=== PATIENT | female | born 1995 | race Caucasian/White ===

== ENCOUNTER 2017-05-20 18:09 | Emergency (ER) | payer OTHER ==
[~2017-05-20] VITALS: Ht 167.6 cm; Wt 90.0 kg
[~2017-05-20 18:09] MED LIST: AMOX500T PO; CEPH500C3 PO; IBUP800T23 PO
[2017-05-20 18:11] VITALS: BP 124/78; PULSE 80; RESP 16; TEMP 98.1; O2SAT 98
--- NOTE | 2017-05-20 18:52 | PD ---
HPI Chief Complaint: Head Injury Time Seen by Provider: 18:39 Travel History International Travel<30 days: No Contact w/Intl Traveler<30days: No Traveled to known affect area: No History of Present Illness HPI 21-year-old female complains of headache. Patient states that she slipped and fell down several steps. Patient states that she hit the back of her head against the steps. Patient denies loss of consciousness. Patient states that he had headache in the back of the head. Patient denies any visual change. Patient denies any neck pain. Patient denies any chest pain or shortness of breath. Patient denies abdominal pain. Patient denies any nausea vomiting. Patient denies any focal weakness or numbness of extremity. Patient states that she has intermittent dizziness. Patient states that she had a short transient period of blurring vision earlier. Patient denies any blurry vision now. PFSH Past Medical History Asthma: Yes (childhood) ?: Unknown LMP: 05/02/17 Past Surgical History Surgical History: No Previous Surgery Social History Alcohol Use: Yes (occasional) Tobacco Use: Yes (1/2 PPD) Substance Use: Yes (marijuana daily) Allergies-Medications (Allergen,Severity, Reaction): Coded Allergies: [place] (Verified Allergy, Severe, anaphalactic, 05/20/17) Reported Meds & Prescriptions Reported Meds & Active Scripts Active No Active Prescriptions or Reported Medications Review of Systems General / Constitutional: No: Fever Eyes: No: Visual changes HENT: Positive: Headaches Cardiovascular: No: Chest Pain or Discomfort Respiratory: No: Shortness of Breath Gastrointestinal: No: Abdominal Pain Genitourinary: No: Dysuria Musculoskeletal: No: Pain Skin: No Rash Neurologic: No: Weakness Psychiatric: No: Depression Endocrine: No: Polydipsia Hematologic/Lymphatic: No: Easy Bruising Physical Exam Narrative GENERAL: Well-nourished, well-developed patient. SKIN: Focused skin assessment warm/dry. HEAD: Normocephalic. Mild tenderness on palpation of the occipital area of the scalp. No soft tissue swelling. No laceration or abrasion noted. EYES: No scleral icterus. No injection or drainage. NECK: Supple, trachea midline. No JVD or lymphadenopathy. CARDIOVASCULAR: Regular rate and rhythm without murmurs, gallops, or rubs. RESPIRATORY: Breath sounds equal bilaterally. No accessory muscle use. GASTROINTESTINAL: Abdomen soft, non-tender, nondistended. MUSCULOSKELETAL: No cyanosis, or edema. BACK: Nontender without obvious deformity. No CVA tenderness. Neurologic exam: Patient's awake and alert oriented 3. No obvious focal neurologic deficit. Data Data Last Documented VS Vital Signs Date Time Temp Pulse Resp B/P Pulse Ox O2 Delivery O2 Flow Rate FiO2 05/20/17 18:11 98.1 80 16 124/[address] Brain W/O Iv Contrast(Rout) (05/20/17 18:43) Ed Urine Pregnancytest Poc (05/20/17 18:43) [facility] Medical Decision Making Medical Screen Exam Complete: Yes Emergency Medical Condition: Yes Interpretation(s) 1951 PM. Urine test negative. [address] scan of the brain negative acute pathology. Differential Diagnosis Differential diagnosis including contusion, concussion, skull fracture, intracranial hemorrhage. Narrative Course 21-year-old female with head injury. Diagnosis Primary Impression: Closed head injury Qualified Code: S09.90XA - Closed head injury, initial encounter Patient Instructions: General Instructions Additional Instructions: Tylenol Advil for headache. Follow-up with personal physician as needed. Head trauma instructions given. Med/Other Pt SpecificInfo: No Change to Meds Scripts No Active Prescriptions or Reported Meds Disposition: 01 DISCHARGE HOME Condition: Stable Pineda Fajardo MD May 20, 2017 18:52
--- NOTE | 2017-05-20 20:32 | RADRPT ---
EXAM DATE/TIME: 05/20/2017 20:22 [facility] COMPARISON: No previous studies available for comparison. INDICATIONS : Trauma, fell and hit head yesterday. Complains of dizziness today. RADIATION DOSE: 34.35 CTDIvol (mGy) MEDICAL HISTORY : None SURGICAL HISTORY : None. ENCOUNTER: Initial ACUITY: 1 day PAIN SCALE: 2/10 LOCATION: cranial TECHNIQUE: Multiple contiguous axial images were obtained of the head. Using automated exposure control and adj ustment of the mA and/or kV according to patient size, radiation dose was kept as low as reasonably a chievable to obtain optimal diagnostic quality images. DICOM format image data is available electro nically for review and comparison. FINDINGS: CEREBRUM: The ventricles are normal for age. No evidence of midline shift, mass lesion, hemorrhage or acute in farction. No extra-axial fluid collections are seen. POSTERIOR FOSSA: The cerebellum and brainstem are intact. The 4th ventricle is midline. The cerebellopontine angle i s unremarkable. EXTRACRANIAL: The visualized portion of the orbits is intact. SKULL: The calvaria is intact. No evidence of skull fracture. CONCLUSION: Negative noncontrast CT brain. Caleb Solorzano MD on May 20, 2017 at 20:30 Board Certified Radiologist. This report was verified electronically.
== END 2017-05-20 20:54 | disposition home or self-care (01) ==
LOC: NEPD 18:09
DX: S09.90XA Unspecified injury of head, initial encounter (principal); J45.909 Unspecified asthma, uncomplicated; R42 Dizziness and giddiness; R51 Headache; F17.200 Nicotine dependence, unspecified, uncomplicated; W10.9XXA Fall (on) (from) unspecified stairs and steps, initial encounter
CPT/HCPCS: 70450; 84703; 99284

== ENCOUNTER 2017-07-10 17:03 | Emergency (ER) | payer OTHER ==
[~2017-07-10] VITALS: Ht 167.6 cm; Wt 90.0 kg
[2017-07-10 17:05] VITALS: BP 128/80; PULSE 92; RESP 20; TEMP 97.8; O2SAT 99
--- NOTE | 2017-07-10 18:31 | PD ---
HPI . abdominal pain Chief Complaint: Related Problem Time Seen by Provider: 18:25 Travel History International Travel<30 days: No Contact w/Intl Traveler<30days: No Traveled to known affect area: No History of Present Illness HPI 22 yr old female here and 10 weeks . Patient says she developed abdominal pain yesterday. She also has a slight vomiting this morning. She says she was in September and had a miscarriage in her symptoms were similar. She is here wanting to know having another miscarriage. She denies any vaginal bleeding. She currently declines a pelvic exam. [facility] Past Medical History Asthma: Yes (childhood) ?: Social History Alcohol Use: Yes (occasional) Tobacco Use: Yes (1/2 PPD) Substance Use: Yes (marijuana daily) Allergies-Medications (Allergen,Severity, Reaction): Coded Allergies: almond (Unverified Allergy, Severe, anaphalactic, 07/10/17) Reported Meds & Prescriptions Reported Meds & Active Scripts Active No Active Prescriptions or Reported Medications Review of Systems General / Constitutional: No: Fever Eyes: No: Visual changes HENT: No: Headaches Cardiovascular: No: Chest Pain or Discomfort Respiratory: No: Shortness of Breath Gastrointestinal: Positive: Abdominal Pain (left lower quadrant) Genitourinary: No: Dysuria Musculoskeletal: No: Pain Skin: No Rash Neurologic: No: Weakness Psychiatric: No: Depression Endocrine: No: Polydipsia Hematologic/Lymphatic: No: Easy Bruising Physical Exam Narrative GENERAL: AAO x 3, no acute distress, Well-nourished, well-developed patient. SKIN: Warm and dry. No visible rashes or bruising. HEAD: Normocephalic and atraumatic. EYES: No scleral icterus. No injection or drainage. ENT: No nasal drainage noted. Mucous membranes pink. Airway patent. NECK: Supple, trachea midline. No JVD. CARDIOVASCULAR: Regular rate and rhythm without murmurs, gallops, or rubs. RESPIRATORY: Breath sounds equal bilaterally. No accessory muscle use. No rhonchi or rales. GASTROINTESTINAL: Abdomen soft, non-tender, nondistended. no rebound or guarding. EXTREMITIES: No cyanosis or edema. BACK: No obvious deformity. No CVA tenderness. NEURO: CN II-12 intact, verification specialist strength normal b/l, UE and LE 5/5, no focal deficits PSYCH: AAO x 3, normal affect. Data Data Last Documented VS Vital Signs Date Time Temp Pulse Resp B/P (MAP) Pulse Ox O2 Delivery O2 Flow Rate FiO2 07/10/17 17:05 97.8 92 20 128/80 (96) 99 Room Air Orders Orders Us Pelvis (Ques Preg/Ectopic) (07/10/17 ) Urinalysis - C+S If Indicated (07/10/17 18:31) Ed Urine Pregnancytest Poc (07/10/17 18:31) Complete Blood Count With Diff (07/10/17 18:58) Basic Metabolic Panel (Bmp) (07/10/17 18:58) Beta Hcg (Quant/Titer) (07/10/17 18:40) Blood Glucose (07/10/17 20:06) Labs Laboratory Tests Test 07/10/17 18:40 07/10/17 20:02 Urine Color LIGHT-YELLOW Urine Turbidity CLEAR Urine pH 7.0 Urine Specific [place] 1.010 Urine Protein NEG mg/dL Urine Glucose (UA) NEG mg/dL Urine Ketones NEG mg/dL Urine Occult Blood NEG Urine Nitrite NEG Urine Bilirubin NEG Urine Urobilinogen LESS THAN 2.0 MG/DL Urine Leukocyte Esterase SMALL Urine RBC 1 /hpf Urine WBC 1 /hpf Urine Squamous Epithelial Cells <1 /hpf Urine Amorphous Sediment RARE Urine Bacteria RARE /hpf Urine Mucus FEW /lpf Microscopic Urinalysis Comment CULT NOT INDICATED Blood Urea Nitrogen 6 MG/DL Creatinine 0.42 MG/DL Random Glucose 63 MG/DL Calcium Level 8.7 MG/DL Sodium Level 137 MEQ/L Potassium Level 3.6 MEQ/L Chloride Level 107 MEQ/L Carbon Dioxide Level 23.4 MEQ/L Anion Gap 7 MEQ/L Estimat Glomerular Filtration Rate 190 ML/MIN Human Chorionic Gonadotropin, Quant 32580 MIU/ML White Blood Count 12.3 TH/MM3 Red Blood Count 4.37 MIL/MM3 Hemoglobin 13.0 GM/DL Hematocrit 39.1 % Mean Corpuscular Volume 89.4 FL Mean Corpuscular Hemoglobin 29.6 PG Mean Corpuscular Hemoglobin Concent 33.1 % Red Cell Distribution Width 13.4 % Platelet Count 303 TH/MM3 Mean Platelet Volume 7.5 FL Neutrophils (%) (Auto) 67.5 % Lymphocytes (%) (Auto) 25.2 % Monocytes (%) (Auto) 5.8 % Eosinophils (%) (Auto) 1.0 % Basophils (%) (Auto) 0.5 % Neutrophils # (Auto) 8.3 TH/MM3 Lymphocytes # (Auto) 3.1 TH/MM3 Monocytes # (Auto) 0.7 TH/MM3 Eosinophils # (Auto) 0.1 TH/MM3 Basophils # (Auto) 0.1 TH/MM3 CBC Comment DIFF FINAL Differential Comment MDM Medical Decision Making Medical Screen Exam Complete: Yes Emergency Medical Condition: Yes Medical Record Reviewed: Yes Differential Diagnosis Threatened , inevitable , gastroenteritis Narrative Course 22-year-old female here with sudden onset of abdominal pain and some vomiting this morning. Labs have been ordered as well as an ultrasound. She also tells me that she would like to be checked for a urinary tract infection. Laboratory Tests Test 07/10/17 18:40 07/10/17 20:02 Urine Color LIGHT-YELLOW Urine Turbidity CLEAR Urine pH 7.0 Urine Specific [place] 1.010 Urine Protein NEG mg/dL Urine Glucose (UA) NEG mg/dL Urine Ketones NEG mg/dL Urine Occult Blood NEG Urine Nitrite NEG Urine Bilirubin NEG Urine Urobilinogen LESS THAN 2.0 MG/DL Urine Leukocyte Esterase SMALL Urine RBC 1 /hpf Urine WBC 1 /hpf Urine Squamous Epithelial Cells <1 /hpf Urine Amorphous Sediment RARE Urine Bacteria RARE /hpf Urine Mucus FEW /lpf Microscopic Urinalysis Comment CULT NOT INDICATED Blood Urea Nitrogen 6 MG/DL Creatinine 0.42 MG/DL Random Glucose 63 MG/DL Calcium Level 8.7 MG/DL Sodium Level 137 MEQ/L Potassium Level 3.6 MEQ/L Chloride Level 107 MEQ/L Carbon Dioxide Level 23.4 MEQ/L Anion Gap 7 MEQ/L Estimat Glomerular Filtration Rate 190 ML/MIN Human Chorionic Gonadotropin, Quant 31363 MIU/ML White Blood Count 12.3 TH/MM3 Red Blood Count 4.37 MIL/MM3 Hemoglobin 13.0 GM/DL Hematocrit 39.1 % Mean Corpuscular Volume 89.4 FL Mean Corpuscular Hemoglobin 29.6 PG Mean Corpuscular Hemoglobin Concent 33.1 % Red Cell Distribution Width 13.4 % Platelet Count 303 TH/MM3 Mean Platelet Volume 7.5 FL Neutrophils (%) (Auto) 67.5 % Lymphocytes (%) (Auto) 25.2 % Monocytes (%) (Auto) 5.8 % Eosinophils (%) (Auto) 1.0 % Basophils (%) (Auto) 0.5 % Neutrophils # (Auto) 8.3 TH/MM3 Lymphocytes # (Auto) 3.1 TH/MM3 Monocytes # (Auto) 0.7 TH/MM3 Eosinophils # (Auto) 0.1 TH/MM3 Basophils # (Auto) 0.1 TH/MM3 CBC Comment DIFF FINAL Differential Comment I have reviewed the US and there is a IUP and HR 167. Dr. Fajardo has reviewed it. Patient cleared for discharge. Patient verbalized understanding of instructions, questions were answered, and thanked me for their care. I advised them if their condition worsens, please return to the nearest emergency room for further care. Diagnosis Primary Impression: Qualified Codes: Z3A.10 - 10 weeks gestation of Patient Instructions: General Instructions Additional Instructions: If you develop any worsening pelvic pain or vaginal bleeding, go to the nearest emergency department. Please establish with a local MEDIA SALES REPRESENTATIVE. Scripts No Active Prescriptions or Reported Meds Disposition: 01 DISCHARGE HOME Condition: Stable Haleigh Kirkpatrick Jul 10, 2017 18:31
[2017-07-10 19:15] LABS: BACTERIA, URINE RARE /hpf; BLOOD, URINE NEG (NEG); COMMENT (UR) CULT NOT INDICATED; CULTURE IF INDICATED CULT NOT INDICATED; GLUCOSE,URINE NEG (NEG); KETONE, URINE NEG (NEG); MUCUS URINE FEW /lpf (OCC); NITRITE,URINE NEG (NEG); SQUAMOUS EPITHELIAL CELL URINE <1 /hpf (0-5); URINE COLOR LIGHT-YELLOW (YELLW/STRAW)
[2017-07-10 19:41] LABS: BICARBONATE 23.4 MEQ/L (21.0-32.0); POTASSIUM 3.6 MEQ/L (3.5-5.1)
[2017-07-10 20:24] LABS: AUTOMATED NEUTROPHIL # 8.3 TH/MM3 (1.8-7.7); BASOPHIL # 0.1 TH/MM3 (0-0.2); BASOPHIL % 0.5 % (0.0-2.0); EOSINOPHIL # 0.1 TH/MM3 (0-0.4); HEMATOCRIT 39.1 % (35.0-46.0); HEMO FLAGS DIFF FINAL; LYMPH % 25.2 % (9.0-44.0); LYMPHOCYTE # 3.1 TH/MM3 (1.0-4.8); MEAN CELL VOLUME 89.4 FL (80.0-100.0); MEAN CORPUSCULAR HEMOGLOBIN 29.6 PG (27.0-34.0); MEAN CORPUSCULAR HGB CONC 33.1 % (32.0-36.0); MONO % 5.8 % (0.0-8.0); NEUT % 67.5 % (16.0-70.0); PLATELET COUNT 303 TH/MM3 (150-450); RED BLOOD COUNT 4.37 MIL/MM3 (4.00-5.30); RED CELL DISTRIBUTION WIDTH 13.4 % (11.6-17.2); WHITE BLOOD COUNT 12.3 TH/MM3 (4.0-11.0)
--- NOTE | 2017-07-10 20:57 | RADRPT ---
EXAM DATE/TIME: 07/10/2017 20:06 [facility] COMPARISON: No previous studies available for comparison. INDICATIONS : Abdominal pain. LAB(S): Beta-hC MEDICAL HISTORY : Asthma. Alcohol use. Substance use. Tobacco use. SURGICAL HISTORY : None. ENCOUNTER: Initial ACUITY: 2 days PAIN SCORE: 6/10 LOCATION: Bilateral pelvis MEASUREMENTS: UTERUS: 9.8 x 9.3 x 6.7 cm ENDOMETRIAL STRIPE: 14 mm RIGHT OVARY: 3.2 x 1.5 x 1.7 cm LEFT OVARY: 4.0 x 1.8 x 2.4 cm FREE FLUID: No CROWN RUMP LENGTH: 3.1 cm = 10 WKS 0 DAYS FHR: 167 BPM FINDINGS: There is a single intrauterine with cardiac activity. The heart rate is calculated a t 167 BPM. The crown rump length correlates to a gestational age of 9 weeks and 5 days. The gestati onal sac size correlates to a gestational age of 10 weeks and 3 days. A yolk sac is present. The ov john are unremarkable bilaterally. There is no free fluid within the cul-de-sac or adnexal mass. CONCLUSION: Single intrauterine with cardiac activity with a crown rump length correlating to a gestati onal age of 9 weeks and 5 days. Wilmer Ruby MD on July 10, 2017 at 20:49 Board Certified Radiologist. This report was verified electronically.
== END 2017-07-10 20:47 | disposition home or self-care (01) ==
LOC: NEPD 17:03
DX: O26.891 Other specified pregnancy related conditions, first trimester (principal); Z3A.10 10 weeks gestation of pregnancy
CPT/HCPCS: 76700; 80048; 81001; 84702; 85025; 99284

== ENCOUNTER 2017-07-18 13:15 | Emergency (ER) | payer OTHER ==
[~2017-07-18] VITALS: Ht 165.1 cm; Wt 90.0 kg
[2017-07-18 13:17] VITALS: BP 144/75; PULSE 94; RESP 20; TEMP 98.4; O2SAT 100
--- NOTE | 2017-07-18 13:58 | PD ---
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 Patient states she is 11 weeks . She states that at 12:30 this afternoon, she noticed some vaginal bleeding. She states that she wiped, the toilet paper was soaked in blood. She's had minimal spotting since. She also reports abdominal cramping. No fevers or chills. No chest pain or shortness of breath. She takes vitamins, but no other medications. She has no chronic medical problems. Patient is a G2, P1 with one previous miscarriage. She does not know her blood type is unsure if she is to receive program in the past. Patient denies any other complaints at this time. Patient is here approximately week ago for abdominal cramping as well. Ultrasound was reassuring at that time. PFSH Past Medical History Asthma: Yes (childhood) ?: : 2 Miscarriage: 1 Social History Alcohol Use: No Tobacco Use: Yes Substance Use: No Allergies-Medications (Allergen,Severity, Reaction): Coded Allergies: [place] (Unverified Allergy, Severe, anaphalactic, 07/10/17) Reported Meds & Prescriptions Reported Meds & Active Scripts Active No Active Prescriptions or Reported Medications Review of Systems Except as stated in HPI: all other systems reviewed are Neg Physical Exam Narrative GENERAL: Well-nourished, well-developed female patient, ambulatory. Afebrile SKIN: Focused skin assessment warm/dry. HEAD: Normocephalic. Atraumatic EYES: No scleral icterus. No injection or drainage. NECK: Supple, trachea midline. No JVD or lymphadenopathy. CARDIOVASCULAR: Regular rate and rhythm without murmurs, gallops, or rubs. RESPIRATORY: Breath sounds equal bilaterally. No accessory muscle use. Lungs sounds are clear to auscultation. GASTROINTESTINAL: Abdomen soft, non-tender, nondistended. Mild pelvic tenderness to palpation. MUSCULOSKELETAL: No cyanosis, or edema. BACK: Nontender without obvious deformity. No CVA tenderness. GENITOURINARY: Normal external genitalia without lesions or erythema. Vaginal vault without blood or drainage. Cervical os was closed without drainage. No cervical motion tenderness. Uterus nontender and nonenlarged. Bilateral adnexa nontender without masses. Pelvic exam was done with [facility] billing and quality technician. Data Data Last Documented VS Vital Signs Date Time Temp Pulse Resp B/P (MAP) Pulse Ox O2 Delivery O2 Flow Rate FiO2 07/18/17 13:17 98.4 94 20 144/75 (98) 100 Orders Orders Complete Rh (07/18/17 13:43) Ed Poc Ultrasound (07/18/17 ) Urinalysis - C+S If Indicated (07/18/17 13:57) Acetaminophen (Tylenol) (07/18/17 14:00) Labs Laboratory Tests Test 07/18/17 14:03 Urine Color YELLOW Urine Turbidity CLEAR Urine pH 6.0 Urine Specific [place] 1.022 Urine Protein NEG mg/dL Urine Glucose (UA) NEG mg/dL Urine Ketones NEG mg/dL Urine Occult Blood NEG Urine Nitrite NEG Urine Bilirubin NEG Urine Urobilinogen LESS THAN 2.0 MG/DL Urine Leukocyte Esterase MOD Urine RBC 2 /hpf Urine WBC 2 /hpf Urine Squamous Epithelial Cells 3 /hpf Urine Hyaline Casts 1 /lpf Urine Mucus FEW /lpf Microscopic Urinalysis Comment CULT NOT INDICATED MDM Medical Decision Making Medical Screen Exam Complete: Yes Emergency Medical Condition: Yes Medical Record Reviewed: Yes Differential Diagnosis intrauterine vs. threatened miscarriage vs. UTI Narrative Course 22 year old female presents to the emergency department for evaluation of abdominal cramping, vaginal bleeding during that started at 12:30 this afternoon. Bedside US was completed with my attending physician, Dr. Whipple , at bedside. US was reassuring with normal FHTs and crown/rump length measuring 11 weeks, 3 days. Complete RH, UA are ordered and pending. Patient gives verbal consent for pelvic examination. Pelvic exam reveals closed os, no blood in vault. Blood type is O+. UA is negative for acute infection. Patient is instructed on pelvic rest, follow up with residential field manager. She verbalizes agreement and understanding. The patient was discharged in stable condition with instructions, including return instructions and follow up instructions. Diagnosis Primary Impression: Qualified Codes: Z3A.11 - 11 weeks gestation of Referrals: Health Assistant call for appointment Patient Instructions: First Trimester (ED), General Instructions Departure Forms: Tests/Procedures, Work Release Enter return to work date: Jul 19, 2017 Additional Instructions: Pelvic rest. Follow up with residential field manager. Return to the emergency department for any acute worsening of symptoms. Med/Other Pt SpecificInfo: No Change to Meds Scripts No Active Prescriptions or Reported Meds Disposition: 01 DISCHARGE HOME Condition: Stable Destiny Chang AARON Jul 18, 2017 13:58
[2017-07-18] MEDS ORDERED: ACETAMINOPHEN 325 MG TAB PO ONE (14:00)
--- NOTE | 2017-07-18 14:13 | PD ---
Data Data Last Documented VS Vital Signs Date Time Temp Pulse Resp B/P (MAP) Pulse Ox O2 Delivery O2 Flow Rate FiO2 07/18/17 13:17 98.4 94 20 144/75 (98) 100 Orders Orders Complete Rh (07/18/17 13:43) Ed Poc Ultrasound (07/18/17 ) Urinalysis - C+S If Indicated (07/18/17 13:57) Acetaminophen (Tylenol) (07/18/17 14:00) Labs Laboratory Tests Test 07/18/17 14:03 MDM Supervised Visit with EVER: Yes Narrative Course The history, exam, and medical decision-making in the associated mid-level provider note were completed with my assistance. I reviewed and agree with the findings presented. I attest that I had a [id number] encounter with the patient on the same day, and personally performed and documented my assessment and findings in the medical record. *My assessment and Findings: 22 year-old woman, first trimester , with some vaginal bleeding. Here earlier for pain when unconfirmed IUP. Point of care ultrasound reassuring. We 'll do pelvic exam. Threatened AB. Suspect some chorionic hemorrhage based on bedside ultrasound. Scripts No Active Prescriptions or Reported Meds Ryan Whipple MD Jul 18, 2017 14:13
[2017-07-18 14:29] LABS: BLOOD, URINE NEG (NEG); COMMENT (UR) CULT NOT INDICATED; CULTURE IF INDICATED CULT NOT INDICATED; GLUCOSE,URINE NEG (NEG); HYALINE CAST, URINE 1 /lpf (RARE); KETONE, URINE NEG (NEG); MUCUS URINE FEW /lpf (OCC); NITRITE,URINE NEG (NEG); SQUAMOUS EPITHELIAL CELL URINE 3 /hpf (0-5); URINE COLOR YELLOW (YELLW/STRAW)
[2017-07-18 15:25] VITALS: BP 122/63
== END 2017-07-18 15:25 | disposition home or self-care (01) ==
LOC: NEPD 13:15
DX: O26.851 Spotting complicating pregnancy, first trimester (principal); Z3A.11 11 weeks gestation of pregnancy
CPT/HCPCS: 81001; 86901

== ENCOUNTER 2017-08-22 16:50 | Emergency (ER) | payer OTHER ==
[~2017-08-22] VITALS: Ht 167.6 cm; Wt 90.0 kg
[2017-08-22 17:18] VITALS: BP 119/71; PULSE 91; RESP 20; TEMP 98.4; O2SAT 95
--- NOTE | 2017-08-22 18:07 | PD ---
Physical Exam Date Seen by Provider: Aug 22, 2017 Time Seen by Provider: 18:04 Narrative 22-year-old white female presents to emergency Department with complaints of vaginal bleeding. She is 15 weeks . She was sent to the OB ER and was referred back to the ER due to her dates. Patient's been sick for last 2 weeks. She's had fever and chills, runny nose, cough, congestion and nausea vomiting. Patient is having some left lower pelvic pain along with her vaginal bleeding. Patient states her pain is a 9/10. Vital signs reviewed. Pt waiting for bed placement. Data Data Last Documented VS Vital Signs Date Time Temp Pulse Resp B/P (MAP) Pulse Ox O2 Delivery O2 Flow Rate FiO2 08/22/17 17:18 98.4 91 20 119/71 (87) 95 Room Air [facility] Medical Record Reviewed: No Supervised Visit with EVER: No Scripts No Active Prescriptions or Reported Meds Kwesi Renteria Aug 22, 2017 18:06
[2017-08-22] MEDS ORDERED: ACETAMINOPHEN 325 MG TAB PO ONE (20:30)
[2017-08-22 20:38] VITALS: BP 117/62; PULSE 80; RESP 18; O2SAT 98
--- NOTE | 2017-08-22 20:43 | PD ---
HPI Chief Complaint: Related Problem Time Seen by Provider: 19:21 Travel History International Travel<30 days: No Contact w/Intl Traveler<30days: No Traveled to known affect area: No History of Present Illness HPI 22 yo F 15w 6 days arrives with vaginal bleeding, bright red, x 1 hour. + LLQ pain worse with coughing and sneezing. no abnl vd. pt reports prior pelvic sonogram was normal. 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 pain quality is sharp. PFSH Past Medical History Asthma: Yes (childhood) Reproductive: Yes Tetanus Vaccination: > 5 Years Influenza Vaccination: No ?: LMP: 15 WKS : 2 Miscarriage: 1 Past Surgical History Gynecologic Surgery: Yes (D AND C) Social History Alcohol Use: No Tobacco Use: Yes (ocassionally) Substance Use: No (pt denies ) Allergies-Medications (Allergen,Severity, Reaction): Coded Allergies: almond (Verified Allergy, Severe, anaphalactic, 08/22/17) Reported Meds & Prescriptions Reported Meds & Active Scripts Active Keflex (Cephalexin) 250 Mg Cap 250 Mg PO Q6H 3 Days Review of Systems Except as stated in HPI: all other systems reviewed are Neg Physical Exam Narrative GENERAL: 22 yo F, WNWD, NAD SKIN: Warm and dry. HEAD: Atraumatic. Normocephalic. EYES: Pupils equal and round. No scleral icterus. No injection or drainage. ENT: No nasal bleeding or discharge. Mucous membranes pink and moist. NECK: Trachea midline. No JVD. CARDIOVASCULAR: Regular rate and rhythm. RESPIRATORY: No accessory muscle use. Clear to auscultation. Breath sounds equal bilaterally. GASTROINTESTINAL: Abdomen soft, non-tender, nondistended. Hepatic and splenic margins not palpable. MUSCULOSKELETAL: Extremities without clubbing, cyanosis, or edema. No obvious deformities. NEUROLOGICAL: Awake and alert. No obvious cranial nerve deficits. Motor grossly within normal limits. Five out of 5 muscle strength in the arms and legs. Normal speech. PSYCHIATRIC: Appropriate mood and affect; insight and judgment normal. Data Data Last Documented VS Vital Signs Date Time Temp Pulse Resp B/P (MAP) Pulse Ox O2 Delivery O2 Flow Rate FiO2 08/22/17 21:08 08/22/17 20:38 80 18 98 Room Air 08/22/17 17:18 98.4 VS reviewed Orders Orders Urinalysis - C+S If Indicated (08/22/17 19:24) Acetaminophen (Tylenol) (08/22/17 20:30) Urine Culture (08/22/17 19:50) Cephalexin (Keflex) (08/22/17 21:00) Ed Discharge Order (08/22/17 21:01) Labs Laboratory Tests Test 08/22/17 19:50 Urine Color YELLOW Urine Turbidity HAZY Urine pH 6.5 Urine Specific [place] 1.022 Urine Protein TRACE mg/dL Urine Glucose (UA) NEG mg/dL Urine Ketones NEG mg/dL Urine Occult Blood TRACE Urine Nitrite NEG Urine Bilirubin NEG Urine Urobilinogen LESS THAN 2.0 MG/DL Urine Leukocyte Esterase LARGE Urine RBC 4 /hpf Urine WBC 9 /hpf Urine Squamous Epithelial Cells 5 /hpf Urine Amorphous Sediment RARE Urine Mucus FEW /lpf Microscopic Urinalysis Comment CULTURE INDICATED MDM Medical Decision Making Medical Screen Exam Complete: Yes Emergency Medical Condition: Yes Medical Record Reviewed: Yes Differential Diagnosis threatened , placenta previa, placenta abruptio, UTI, IUP, round ligament pain Narrative Course prior blood type O+ UA: UTI present TA sono shows IUP w FHR 160 pelvic rest precautions discussed pt has ob follow up tomorro Diagnosis Primary Impression: Second trimester bleeding Additional Impression: UTI (urinary tract infection) Additional Instructions: You have a choice when it comes to health care, and we are glad that you chose [facility]. Hopefully, we have met your expectations on today's visit. You are welcome to return to [facility] at any time, as we are committed to meeting the health care needs of our community. Med/Other Pt SpecificInfo: No Change to Meds Scripts Cephalexin (Keflex) 250 Mg Cap 250 MG PO Q6H for Infection for 3 Days, #12 CAP 0 Refills Prov: Calderon Barnett MD 08/22/17 Disposition: 01 DISCHARGE HOME Condition: Stable Calderon Barnett MD Aug 22, 2017 20:43
[2017-08-22 20:49] LABS: BLOOD, URINE TRACE (NEG); COMMENT (UR) CULTURE INDICATED; CULTURE IF INDICATED CULTURE INDICATED; GLUCOSE,URINE NEG (NEG); KETONE, URINE NEG (NEG); MUCUS URINE FEW /lpf (OCC); NITRITE,URINE NEG (NEG); PH, URINE 6.5 (5.0-8.5); SQUAMOUS EPITHELIAL CELL URINE 5 /hpf (0-5); URINE COLOR YELLOW (YELLW/STRAW)
[2017-08-22] MEDS ORDERED: CEPHALEXIN MONOHYDRATE 500 MG CAP PO ONE (21:00)
[2017-08-22] MEDS ORDERED: CEPH-459 PO (21:02)
[2017-08-23] MEDS ORDERED: PREN1CAP7 PO (14:16)
[2017-08-28] MEDS ORDERED: TERC0.8C VAGINAL (09:11)
== END 2017-08-22 21:10 | disposition home or self-care (01) ==
LOC: NED 16:50 → NEPC 16:50
DX: O20.9 Hemorrhage in early pregnancy, unspecified (principal); N39.0 Urinary tract infection, site not specified; Z3A.15 15 weeks gestation of pregnancy
CPT/HCPCS: 81001; 87086; 99283

== ENCOUNTER 2017-11-19 08:21 | Emergency (ER) | payer OTHER ==
[~2017-11-19 08:21] MED LIST changes: -AMOX500T PO; -CEPH500C3 PO; -IBUP800T23 PO; +PREN1CAP7 PO; +TERC0.8C VAGINAL
--- NOTE | 2017-11-19 09:21 | PD ---
HPI Chief Complaint Chest pain and lower pelvic pain Date Seen: Nov 19, 2017 Time Seen: 09:15 Travel History International Travel<30 Days: No Contact w/Intl Traveler<30Days: No Known Affected Area: No History of Present Illness HPI 22-year-old who is at 29 weeks gestation comes in complaining of bilateral lower pelvic pain in the inguinal region and anterior chest pain with pressure and heaviness. Patient states that she was recently diagnosed with asthma for which she has not experienced symptoms since childhood. She complains of some dyspnea that occurred last night it was accompanied by heaviness on her chest and a feeling of pressure. She felt as though she was wheezing but had no inhaler. She did not come in the hospital till this morning. Patient denies vaginal bleeding, vaginal discharge, or uterine contractions. Weeks Gestation: 29 Para: 0 : 2 Miscarriage: 1 (12 weeks) History Past Medical History Narrative Medical Asthma as a child Obstetric History Obstetric History D&C with her last after miscarriage Past Surgical History Narrative Surgical D&C Family History Family History: Negative Social History Alcohol Use: No Tobacco Use: No Substance Abuse: No Allergies-Medications (Allergen,Severity, Reaction): Coded Allergies: almond (Verified Allergy, Severe, anaphalactic, 09/18/17) Home Meds Active Scripts Terconazole Vaginal Cream (Terconazole Vaginal Cream) 0.8 % Cream, 1 APPL VAGINAL HS for Fungal Infection, #20 GM 0 Refills For 3 days. Prov:Mery Todd CNM [facility] 08/28/17 W/O Vit A W/ Fe Fumar (Citranatal [place]) 27-1-260 Mg Cap, 1 CAP PO DAILY for Nutritional Supplement, #30 CAP 3 Refills Prov:Mery Todd CNM [facility] 08/23/17 Review of Systems Except as stated in HPI: all other systems reviewed are Neg Physical Exam Narrative GENERAL: Well-nourished, well-developed patient. SKIN: Warm and dry. HEAD: Normocephalic and atraumatic. EYES: No scleral icterus. No injection or drainage. ENT: No nasal drainage noted. Mucous membranes pink. Airway patent. NECK: Supple, trachea midline. No JVD. CARDIOVASCULAR: Regular rate and rhythm without murmurs, gallops, or rubs. RESPIRATORY: Breath sounds equal bilaterally. No accessory muscle use. ABDOMEN/GI: Abdomen soft, non-tender, bowel sounds present, no rebound, no guarding Gravid to [-] weeks size 29 Fundal Height: [-] GENITOURINARY: External Genitalia: intact and normal in appearance BUS glands: [-] Normal Cervix: [-] Posterior Dilatation: [-] Closed Effacement: [-] Long Station: [-] High Presentation: [-] Membranes: [intact or ruptured] intact Uterine Contractions: [-] Absent FHT's: Category: [-] 1 Baseline: [-] 140 Reactive: [-] Moderate Variability: [-] Moderate Decels: [-] Absent EXTREMITIES: No cyanosis or edema. BACK: Nontender without obvious deformity. No CVA tenderness. NEUROLOGICAL: Awake and alert. Motor and sensory grossly within normal limits. Five out of 5 muscle strength in all muscle groups. Normal speech. Data Data Vital Signs Reviewed: Yes [facility] Medical Record Reviewed: Yes Plan 22-year-old with bilateral round ligament pain associated with No signs of contractions or labor Chest pain no etiology present time lung exam is normal-will transfer to the main ED for evaluation and to ensure no additional medical evaluation is necessary Follow-up with OB provider for her continued obstetrical care Diagnosis Diagnosis: Primary Impression: 29 weeks gestation of Additional Impressions: Pain of round ligament affecting , antepartum Chest pain in adult Disposition: 01 DISCHARGE HOME (patient will be discharged from the OB ED and transferred to the main ED for continued evaluation) Condition: Jayla Lucero MD Nov 19, 2017 09:21
== END 2017-11-19 09:48 | disposition home or self-care (01) ==
LOC: HOBED 08:21
DX: O26.893 Other specified pregnancy related conditions, third trimester (principal); R07.9 Chest pain, unspecified; R10.2 Pelvic and perineal pain; Z3A.29 29 weeks gestation of pregnancy
CPT/HCPCS: 99283

== ENCOUNTER 2017-11-19 09:48 | Emergency (ER) | payer OTHER ==
[~2017-11-19] VITALS: Ht 167.6 cm; Wt 100.0 kg
[2017-11-19 09:50] VITALS: BP 117/63; PULSE 87; RESP 18; TEMP 98.1; O2SAT 99
[2017-11-19] MEDS ORDERED: SODIUM CHLORIDE 0.9% FLUSH 10 ML FLUSH IVF PRN (10:30)
--- NOTE | 2017-11-19 10:46 | PD ---
HPI Chief Complaint: Chest Pain Time Seen by Provider: 10:08 Travel History International Travel<30 days: No Contact w/Intl Traveler<30days: No Traveled to known affect area: No History of Present Illness HPI 22-year-old at 29 weeks gestation presents with central chest pain. She states that she's also had a little bit of nasal congestion. She states she felt like she was having an asthma attack yesterday because she had a hard time breathing to the point where she passed out. She states that she currently does not have an inhaler and has not had an attack since she was a child. She states she feels worse when she moves around. She denies any other concurrent complaints. She already saw the OB team upstairs and was cleared from their regard. Quality is pressure. Severity is progressive. Duration is past couple of days. PFSH Past Medical History Asthma: Yes (childhood) Diminished Hearing: No Reproductive: Yes Immunizations Current: Yes ?: LMP: 05/03/18 : 2 Miscarriage: 1 Dilation and Curettage (D&C): Yes (09/2016) Past Surgical History Surgical History: No Previous Surgery Gynecologic Surgery: Yes (D AND C) Social History Alcohol Use: No Tobacco Use: No Substance Use: No (pt denies ) Allergies-Medications (Allergen,Severity, Reaction): Coded Allergies: almond (Verified Allergy, Severe, anaphalactic, 11/19/17) Reported Meds & Prescriptions Reported Meds & Active Scripts Active Citranatal [place] ( W/O Vit A W/ Fe Fumar) 27-1-260 Mg Cap 1 Cap PO DAILY Review of Systems Except as stated in HPI: all other systems reviewed are Neg Physical Exam Narrative GENERAL: Well-nourished, well-developed patient. Well-appearing SKIN: Warm and dry. HEAD: Normocephalic and atraumatic. EYES: No injection or drainage. ENT: No nasal drainage noted. NECK: Supple, trachea midline. CARDIOVASCULAR: Regular rate and rhythm RESPIRATORY: Breath sounds equal bilaterally. No accessory muscle use. GASTROINTESTINAL: Abdomen soft, non-tender EXTREMITIES: No edema. NEUROLOGICAL: Awake and alert. Motor and sensory grossly within normal limits. Normal speech. Data Data Last Documented VS Vital Signs Date Time Temp Pulse Resp B/P (MAP) Pulse Ox O2 Delivery O2 Flow Rate FiO2 11/19/17 13:58 11/19/17 09:50 98.1 87 18 99 Orders Orders Electrocardiogram (11/19/17 10:17) Complete Blood Count With Diff (11/19/17 10:17) Comprehensive Metabolic Panel (11/19/17 10:17) Magnesium (Mg) (11/19/17 10:17) Prothrombin Time / Inr (Pt) (11/19/17 10:17) Act Partial Throm Time (Ptt) (11/19/17 10:17) Chest, Single Ap (11/19/17 10:17) Ecg Monitoring (11/19/17 10:17) Bilateral Bp Monitoring (11/19/17 10:17) Iv Access Insert/Monitor (11/19/17 10:17) Oximetry (11/19/17 10:17) Sodium Chloride 0.9% Flush (Ns Flush) (11/19/17 10:30) Us Leg Venous Doppler Bilat (11/19/17 ) Influenzae A/B Antigen (11/19/17 10:37) Ct Pulmonary Angiogram (11/19/17 ) Iohexol 350 Inj (Omnipaque 350 Inj) (11/19/17 13:20) Ed Discharge Order (11/19/17 13:48) Labs Laboratory Tests Test 11/19/17 10:25 11/19/17 11:32 Blood Urea Nitrogen 6 MG/DL Creatinine 0.40 MG/DL Random Glucose 73 MG/DL Total Protein 6.9 GM/DL Albumin 2.6 GM/DL Calcium Level 8.6 MG/DL Magnesium Level 1.9 MG/DL Alkaline Phosphatase 128 U/L Aspartate Amino Transf (AST/SGOT) 31 U/L Alanine Aminotransferase (ALT/SGPT) 7 U/L Total Bilirubin 0.2 MG/DL Sodium Level 138 MEQ/L Potassium Level 4.5 MEQ/L Chloride Level 109 MEQ/L Carbon Dioxide Level 20.7 MEQ/L Anion Gap 8 MEQ/L Estimat Glomerular Filtration Rate 201 ML/MIN White Blood Count 8.6 TH/MM3 Red Blood Count 3.28 MIL/MM3 Hemoglobin 10.2 GM/DL Hematocrit 28.9 % Mean Corpuscular Volume 88.0 FL Mean Corpuscular Hemoglobin 31.1 PG Mean Corpuscular Hemoglobin Concent 35.3 % Red Cell Distribution Width 13.5 % Platelet Count 240 TH/MM3 Mean Platelet Volume 7.7 FL Neutrophils (%) (Auto) 68.0 % Lymphocytes (%) (Auto) 24.5 % Monocytes (%) (Auto) 6.6 % Eosinophils (%) (Auto) 0.7 % Basophils (%) (Auto) 0.2 % Neutrophils # (Auto) 5.9 TH/MM3 Lymphocytes # (Auto) 2.1 TH/MM3 Monocytes # (Auto) 0.6 TH/MM3 Eosinophils # (Auto) 0.1 TH/MM3 Basophils # (Auto) 0.0 TH/MM3 CBC Comment DIFF FINAL Differential Comment Prothrombin Time 9.8 SEC Prothromb Time International Ratio 1.0 RATIO Activated Partial Thromboplast Time 27.0 SEC MDM Medical Decision Making Medical Screen Exam Complete: Yes Emergency Medical Condition: Yes Medical Record Reviewed: Yes (past history confirmed) Interpretation(s) CBC & BMP Diagram 11/19/17 10:25 Total Protein 6.9, Albumin 2.6 L, Calcium Level 8.6, Magnesium Level 1.9, Alkaline Phosphatase 128 H, Aspartate Amino Transf (AST/SGOT) 31, Alanine Aminotransferase (ALT/SGPT) 7 L, Total Bilirubin 0.2 11/19/17 11:32 Last 24 hours Impressions Chest X-Ray 11/19/17 1017 Signed Impressions: Service Date/Time: Sunday, November 19, 2017 10:27 - CONCLUSION: Normal examination. Nilsa Carson MD Lower Extremity Ultrasound 11/19/17 0000 Signed Impressions: Service Date/Time: Sunday, November 19, 2017 10:51 - CONCLUSION: No evidence of DVT within either extremity.. Nilsa Carson MD CT Angiography 11/19/17 0000 Signed Impressions: Service Date/Time: Sunday, November 19, 2017 13:01 - CONCLUSION: No evidence of pulmonary embolus. Lungs are clear. Derek Bronson MD Differential Diagnosis Anemia, pneumonia, URI, PE Narrative Course Will check blood work, chest x-ray, Doppler ultrasound and reevaluate. If no source of chest pain on initial workup will need to discuss with OB proceeding with CT versus V/Q patient agrees to ct pulmonary to rule out pe ed workup no acute, Patient denies any new complaints, all questions answered. Patient knows that follow up is incumbent on them and to return to the emergency room immediately if new or worsening symptoms develop. Patient given strict return precautions, vitals reviewed and are normal, agrees to further workup as an outpatient. Diagnosis Primary Impression: Chest pain Qualified Codes: R07.9 - Chest pain, unspecified Additional Impression: Qualified Codes: Z3A.29 - 29 weeks gestation of Patient Instructions: General Instructions Additional Instructions: return as needed, keep hydrated, follow with your OB tommorrow, tylenol as needed Med/Other Pt SpecificInfo: No Change to Meds Disposition: 01 DISCHARGE HOME Condition: Stable Estrella De Los Santos MD Nov 19, 2017 10:46
--- NOTE | 2017-11-19 10:52 | RADRPT ---
EXAM DATE/TIME: 11/19/2017 10:27 [facility] COMPARISON: No previous studies available for comparison. INDICATIONS : Chest pain MEDICAL HISTORY : Asthma SURGICAL HISTORY : None. ENCOUNTER: Initial ACUITY: 2 days PAIN SCORE: 5/10 LOCATION: Bilateral chest FINDINGS: A single view of the chest demonstrates the lungs to be symmetrically aerated without evidence of mas s, infiltrate or effusion. The cardiomediastinal contours are unremarkable. Osseous structures are intact. CONCLUSION: Normal examination. Nilsa Carson MD on November 19, 2017 at 10:49 Board Certified Radiologist. This report was verified electronically.
[2017-11-19 10:58] LABS: ALKALINE PHOSPHATASE 128 U/L (45-117); TOTAL BILIRUBIN ADULT 0.2 MG/DL (0.2-1.0); TOTAL PROTEIN 6.9 GM/DL (6.4-8.2)
[2017-11-19 11:01] LABS: ALBUMIN 2.6 GM/DL (3.4-5.0); ALT (GPT) 7 U/L (10-53); AST (GOT) 31 U/L (15-37); BICARBONATE 20.7 MEQ/L (21.0-32.0); BLOOD UREA NITROGEN 6 MG/DL (7-18); CALCIUM 8.6 MG/DL (8.5-10.1); CHLORIDE 109 MEQ/L (98-107); GLOMERULAR FILTRATION RATE 201 ML/MIN (>89); GLUCOSE,RANDOM 73 MG/DL (74-106); MAGNESIUM 1.9 MG/DL (1.5-2.5); SODIUM (NA) 138 MEQ/L (136-145)
--- NOTE | 2017-11-19 11:52 | RADRPT ---
EXAM DATE/TIME: 11/19/2017 10:51 [facility] COMPARISON: No previous studies available for comparison. INDICATIONS : Chest pain. Leg swelling. MEDICAL HISTORY : . SURGICAL HISTORY : D&C. ENCOUNTER: Initial ACUITY: 1 day PAIN SCORE: 2/10 LOCATION: Bilateral leg. TECHNIQUE: Venous ultrasound of the left and right leg was performed from the inguinal ligament to the proximal calf. Real-time, color Doppler and spectral tracing, compression and augmentation techniques were us ed. FINDINGS: RIGHT LEG: There is normal compressibility of the deep venous system from the inguinal region to the proximal ca lf. No echogenic clot is seen in the lumen of the common femoral, femoral, popliteal, and posterior tibial veins. There is a normal response of the venous system to proximal and distal augmentation an d respiration. LEFT LEG: There is normal compressibility of the deep venous system from the inguinal region to the proximal ca lf. No echogenic clot is seen in the lumen of the common femoral, femoral, popliteal, and posterior tibial veins. There is a normal response of the venous system to proximal and distal augmentation an d respiration. CONCLUSION: No evidence of DVT within either extremity.. Nilsa Carson MD on November 19, 2017 at 11:49 Board Certified Radiologist. This report was verified electronically.
[2017-11-19 11:54] LABS: AUTOMATED NEUTROPHIL # 5.9 TH/MM3 (1.8-7.7); BASOPHIL % 0.2 % (0.0-2.0); EOSINOPHIL # 0.1 TH/MM3 (0-0.4); EOSINOPHIL % 0.7 % (0.0-4.0); HEMATOCRIT 28.9 % (35.0-46.0); HEMOGLOBIN 10.2 GM/DL (11.6-15.3); LYMPH % 24.5 % (9.0-44.0); LYMPHOCYTE # 2.1 TH/MM3 (1.0-4.8); MEAN CORPUSCULAR HEMOGLOBIN 31.1 PG (27.0-34.0); MEAN CORPUSCULAR HGB CONC 35.3 % (32.0-36.0); MEAN PLATELET VOLUME 7.7 FL (7.0-11.0); MONO % 6.6 % (0.0-8.0); MONOCYTE # 0.6 TH/MM3 (0-0.9); PLATELET COUNT 240 TH/MM3 (150-450); RED BLOOD COUNT 3.28 MIL/MM3 (4.00-5.30); RED CELL DISTRIBUTION WIDTH 13.5 % (11.6-17.2); WHITE BLOOD COUNT 8.6 TH/MM3 (4.0-11.0)
[2017-11-19 12:04] LABS: PROTHROMBIN TIME - PATIENT 9.8 SEC (9.8-11.6)
[2017-11-19] MEDS ORDERED: IOHEXOL 350 MG/ML 10 ML VIAL (for RAD DIAG) IVCONTRAST ONE (13:20)
--- NOTE | 2017-11-19 13:44 | RADRPT ---
EXAM DATE/TIME: 11/19/2017 13:01 [facility] COMPARISON: No previous studies available for comparison. INDICATIONS : Chest pain and shortness of breath since last night. IV CONTRAST: 97 cc Omnipaque 350 (iohexol) IV RADIATION DOSE: 17.93 CTDIvol (mGy) ; Patient motion MEDICAL HISTORY : None SURGICAL HISTORY : None. ENCOUNTER: Initial ACUITY: 1 day PAIN SCALE: 5/10 LOCATION: chest TECHNIQUE: Volumetric scanning of the chest was performed using a pulmonary embolism protocol MIP images were re constructed. Using automated exposure control and adjustment of the mA and/or kV according to patien t size, radiation dose was kept as low as reasonably achievable to obtain optimal diagnostic quality images. DICOM format image data is available electronically for review and comparison. Follow-up recommendations for detected pulmonary nodules are based at a minimum on nodule size and pa tient risk factors according to Fleischner Society Guidelines. FINDINGS: PULMONARY ARTERIES: No filling defects are seen in the pulmonary arteries through the segmental level. LUNGS: There is no consolidation or pneumothorax . No concerning pulmonary nodule is visualized. PLEURAE: There is no pleural thickening or pleural effusion. MEDIASTINUM: There is good visualization of the great vessels of the middle mediastinum. No evidence of mediastin al or hilar adenopathy/mass. MUSCULOSKELETAL: Within normal limits for patient age. MISCELLANEOUS: The visualized upper abdominal organs demonstrate no acute abnormality. CONCLUSION: No evidence of pulmonary embolus. Lungs are clear. Derek Bronson MD on November 19, 2017 at 13:37 Board Certified Radiologist. This report was verified electronically.
--- NOTE | 2017-11-20 18:54 | EKG ---
Date Performed: 11/19/2017 Time Performed: 10:04:34 PTAGE: 22 years EKG: Sinus rhythm NORMAL ECG NO PREVIOUS TRACING DOCTOR: Santy Najera Interpretating Date/Time 11/20/2017 18:52:46
== END 2017-11-19 14:00 | disposition home or self-care (01) ==
LOC: NEPC 09:48
DX: O26.893 Other specified pregnancy related conditions, third trimester (principal); R07.9 Chest pain, unspecified; O99.513 Diseases of the respiratory system complicating pregnancy, third trimester; J45.909 Unspecified asthma, uncomplicated; Z3A.29 29 weeks gestation of pregnancy
CPT/HCPCS: 71045; 71275; 80053; 83735; 85025; 85610; 85730; 87804; 93005; 93970; 99285; Q9967

== ENCOUNTER 2017-12-19 20:56 | Emergency (ER) | payer OTHER ==
[~2017-12-19 20:56] MED LIST changes: -TERC0.8C VAGINAL
[2017-12-19] MEDS ORDERED: URSO300C2 PO (21:51)
[2017-12-19] MEDS ORDERED: HYDR50TA94 PO (21:52)
--- NOTE | 2017-12-19 21:52 | PD ---
HPI Chief Complaint Itching all over for the last 2 weeks Date Seen: Dec 19, 2017 Time Seen: 21:40 Travel History International Travel<30 Days: No Contact w/Intl Traveler<30Days: No Known Affected Area: No History of Present Illness HPI 22-year-old white female at 33 weeks [facility] and presents complaining of 2 week history of itching severely all over body in the palms of her hands soles of her feet, there is no rash associated with this , she has tried no medication to relieve it. Denies any obstetric problems no bleeding or leaking, she does complain of a yeast infection it is ongoing was treated with Terazol 3 and came back right after she finished the medicine. heart tones are reactive and there are no contractions noted Weeks Gestation: 33 Para: 0 : 2 Miscarriage: 1 History Obstetric History Obstetric History 1 early loss Social History Alcohol Use: No Tobacco Use: No Substance Abuse: No Allergies-Medications (Allergen,Severity, Reaction): Coded Allergies: almond (Verified Allergy, Severe, anaphalactic, 11/19/17) Home Meds Active Scripts Hydroxyzine HCl (Hydroxyzine HCl) 50 Mg Tab, 50 MG PO TID for Itching, #30 TAB 3 Refills Prov:Paul Medina II, MD 12/19/17 Ursodiol (Ursodiol) 300 Mg Cap, 300 MG PO TID for Gallstones for 14 Days, #90 CAP 3 Refills Prov:Paul Medina II, MD 12/19/17 W/O Vit A W/ Fe Fumar (Citranatal [place]) 27-1-260 Mg Cap, 1 CAP PO DAILY for Nutritional Supplement, #30 CAP 3 Refills Prov:Mery Todd CNM 08/23/17 Review of Systems General / Constitutional: No: Fever, Weight Gain, Chills, Other Eyes: No: Diploplia, Blurred Vision, Visual changes, Pain, Photophobia HENT: No: Headaches, Vertigo, Lightheadedness Cardiovascular: No: Irregular Rhythm, Chest Pain or Discomfort, Palpitations, Tachycardia, Syncope, Varicosities, Edema, Cyanosis Respiratory: No: Cough, Short of Breath, Other Gastrointestinal: No: Nausea, Vomiting, Diarrhea Genitourinary: Discharge, No: Decreased Urinary Output, Oliguria Musculoskeletal: No: Limited ROM, Weakness, Cramping, Edema, Pain Skin: No Rash, Itching, No Dryness, No Lumps, No Change in Pigmentation, No Change in Nails, No Alopecia, No Lesions Neurologic: No: Weakness, Dizziness, Syncope, Focal Abnormalities, Coordination Problem, Headache, Slurred Speech, Seizures Psychiatric: No: Depression, Suicidal Ideations, Homicidal Ideation Endocrine: No: Heat Intolerance, Cold Intolerance, Polydipsia, Polyuria, Other Physical Exam Narrative GENERAL: Well-nourished, well-developed patient. sitting in bed scratching all over SKIN: Warm and dry. No rash only areas where she scratched showing any type of the defect HEAD: Normocephalic and atraumatic. EYES: No scleral icterus. No injection or drainage. ENT: No nasal drainage noted. Mucous membranes pink. Airway patent. NECK: Supple, trachea midline. No JVD. CARDIOVASCULAR: Regular rate and rhythm without murmurs, gallops, or rubs. RESPIRATORY: Breath sounds equal bilaterally. No accessory muscle use. BREASTS: Bilateral exam showed no masses , no retractions, no nipple discharge. ABDOMEN/GI: Abdomen soft, non-tender, bowel sounds present, no rebound, no guarding Gravid to [33-] weeks size Fundal Height: [33-] GENITOURINARY: External Genitalia: intact and normal in appearance, labia and introitus inflamed with yeast -] The vagina is yeastlike discharge and is very tender Cervix: [Closed-] Dilatation: [Closed-] Effacement: [Thick-] Station: [-3] Membranes: [intact ] Uterine Contractions: [none-] FHT's: Category: [1-] Baseline: [-133] Reactive: [-R] Variability: [mod-] Decels: [-none] EXTREMITIES: No cyanosis or edema. BACK: Nontender without obvious deformity. No CVA tenderness. NEUROLOGICAL: Awake and alert. Motor and sensory grossly within normal limits. Five out of 5 muscle strength in all muscle groups. Normal speech. Data Data Labs Urine dip on OB ED negative MDM Interpretation(s) Patient is 22-year-old white female at 33 weeks who presents with itching all over her body including the palms of her hands and soles of feet, no rash noted, problems been going on for 2 weeks and patient cannot sleep or get any rest because she is just being driven basically crazy about this total itching, she also complains of a yeast infection that was treated with Terazol 3 and then came back after treatment. Impression--cholestasis of , monilial vaginitis Plan Plan to check a bile salt/ acid level, liver functions , begin therapy with ursodiol p.o.. , Also calamine lotion and p.o. Atarax for itching Will treat with Terazol 7 cream for yeast infection nightly for a week and then after that suppression chronically with [id number] antifungal cream to use 2-3 times a week at bedtime for the next few months Diagnosis Diagnosis: Primary Impression: Cholestasis of in third trimester Additional Impressions: Yeast infection of the vagina 33 weeks gestation of Disposition: 01 DISCHARGE HOME Condition: Stable Scripts Terconazole Vaginal Cream (Terazol 7 Vaginal Cream) 0.4 % Cream 1 APPL VAGINAL HS for Fungal Infection for 7 Days, #45 GM 0 Refills 1 applicatorful intravaginally x 7 nights Prov: Paul Medina II, MD 12/19/17 Hydroxyzine HCl (Hydroxyzine HCl) 50 Mg Tab 50 MG PO TID for Itching, #30 TAB 3 Refills Prov: Paul Medina II, MD 12/19/17 Ursodiol (Ursodiol) 300 Mg Cap 300 MG PO TID for Gallstones for 14 Days, #90 CAP 3 Refills Prov: Paul Medina II, MD 12/19/17 Paul Medina II, MD Dec 19, 2017 21:52
[2017-12-19] MEDS ORDERED: TERC.4%V VAGINAL (21:53)
[2017-12-19 22:32] LABS: ALBUMIN 2.3 GM/DL (3.4-5.0); ALT (GPT) 9 U/L (10-53); AST (GOT) 7 U/L (15-37); BICARBONATE 25.6 MEQ/L (21.0-32.0); BLOOD UREA NITROGEN 4 MG/DL (7-18); CALCIUM 8.7 MG/DL (8.5-10.1); CHLORIDE 109 MEQ/L (98-107); CREATININE 0.48 MG/DL (0.50-1.00); GLOMERULAR FILTRATION RATE 163 ML/MIN (>89); GLUCOSE,RANDOM 125 MG/DL (74-106); SODIUM (NA) 143 MEQ/L (136-145)
[2017-12-19 22:35] LABS: ALKALINE PHOSPHATASE 186 U/L (45-117); TOTAL BILIRUBIN ADULT 0.2 MG/DL (0.2-1.0); TOTAL PROTEIN 5.9 GM/DL (6.4-8.2)
[2017-12-19 23:09] LABS: AMORPHOUS SEDIMENT, URINE RARE; BILIRUBIN, URINE NEG (NEG); BLOOD, URINE NEG (NEG); GLUCOSE,URINE NEG (NEG); HYALINE CAST, URINE 1 /lpf (RARE); KETONE, URINE NEG (NEG); MUCUS URINE FEW /lpf (OCC); NITRITE,URINE NEG (NEG); PH, URINE 7.5 (5.0-8.5); SQUAMOUS EPITHELIAL CELL URINE 2 /hpf (0-5); URINE COLOR YELLOW (YELLW/STRAW); URINE LEUKOCYTE ESTERASE MOD (NEG)
== END 2017-12-19 22:49 | disposition home or self-care (01) ==
LOC: HOBED 20:56
DX: O26.613 Liver and biliary tract disorders in pregnancy, third trimester (principal); K83.1 Obstruction of bile duct; O98.813 Other maternal infectious and parasitic diseases complicating pregnancy, third trimester; Z79.899 Other long term (current) drug therapy; Z3A.33 33 weeks gestation of pregnancy
CPT/HCPCS: 36415; 80053; 81001; 82239; 99284

== ENCOUNTER 2018-01-01 13:03 | Emergency (ER) | payer OTHER ==
[~2018-01-01 13:03] MED LIST changes: +HYDR50TA94 PO; +TERC.4%V VAGINAL; +URSO300C2 PO
--- NOTE | 2018-01-01 13:58 | PD ---
HPI Chief Complaint Cramping and swollen left leg Date Seen: Jan 01, 2018 Travel History International Travel<30 Days: No Contact w/Intl Traveler<30Days: No Known Affected Area: No History of Present Illness HPI Patient is a 22 year old at 35/2 weeks gestation that presents to the [facility] with chief complaints of cramping that began this morning around 7am and swelling in her lower extremities, that is worse on the left. Notably, patient states that she walked [place] and [place] the [place] day [place]. She also reports decreased movement in the last few days. She denies dysuria, abnormal vaginal discharge, or vaginal bleeding. She has had nausea and vomiting throughout her . She states that she has been drinking a lot of fluids and eats ice chips all day. She denies recent sexual intercourse, stating that her last intercourse was 2 months ago. Patient was seen in the OB ED on December 19 where she was diagnosed with cholestasis of due to persistent itching. She was prescribed ursodiol 300 mg 3 times daily at that time. Patient states that she has been taking the medication but it has not improved the itching. Weeks Gestation: 35 Para: 0 Miscarriage: 1 History Past Medical History Narrative Medical Cholestasis of Obstetric History Obstetric History Miscarriage at 10 weeks that required a D&C in 2016 at an outside hospital in [place], [place] Past Surgical History Surgical History: No Previous Surgery Family History Narrative Family History Mom had gestational diabetes with all 3 pregnancies Strong paternal family history of hypertension including had that Social History Narrative Social History Unemployed at the moment Alcohol Use: No Tobacco Use: No (Former smoker, quit when she found that she was ) Substance Abuse: No Allergies-Medications (Allergen,Severity, Reaction): Coded Allergies: almond (Verified Allergy, Severe, anaphalactic, 11/19/17) Home Meds Active Scripts Nitrofurantoin Monohydrate Macrocrystals (Macrobid) 100 Mg Cap, 100 MG PO BID for Infection, #14 CAP 0 Refills Prov:Meghan Rock MD 01/01/18 Ursodiol (Ursodiol) 300 Mg Cap, 600 MG PO TID for Gallstones for 14 Days, #90 CAP 3 Refills Prov:Meghan Rock MD 3/12/18 Terconazole Vaginal Cream (Terazol 7 Vaginal Cream) 0.4 % Cream, 1 APPL VAGINAL HS for Fungal Infection for 7 Days, #45 GM 0 Refills 1 applicatorful intravaginally x 7 nights Prov:Paul Medina II, MD 12/19/17 Hydroxyzine HCl (Hydroxyzine HCl) 50 Mg Tab, 50 MG PO TID for Itching, #30 TAB 3 Refills Prov:Paul Medina II, MD 12/19/17 W/O Vit A W/ Fe Fumar (Citranatal [place]) 27-1-260 Mg Cap, 1 CAP PO DAILY for Nutritional Supplement, #30 CAP 3 Refills Prov:Mery Todd CNM [facility] 08/23/17 Review of Systems General / Constitutional: No: Fever, Chills Eyes: No: Blurred Vision HENT: No: Headaches Cardiovascular: No: Chest Pain or Discomfort Respiratory: No: Short of Breath Gastrointestinal: Nausea, Vomiting, Abdominal Pain Genitourinary: No: Dysuria, Discharge, Vaginal Bleeding Musculoskeletal: Edema, Pain (Bilateral, worse on the left) Skin: Itching Physical Exam Narrative GENERAL: Well-nourished, well-developed patient. SKIN: Warm and dry. HEAD: Normocephalic and atraumatic. EYES: No scleral icterus. No injection or drainage. ENT: No nasal drainage noted. Mucous membranes pink. Airway patent. NECK: Supple, trachea midline. No JVD. CARDIOVASCULAR: Tachycardic rate and rhythm without murmurs, gallops, or rubs. RESPIRATORY: Breath sounds equal bilaterally. No accessory muscle use. ABDOMEN/GI: Abdomen soft, non-tender, bowel sounds present, no rebound, no guarding Gravid abdomen GENITOURINARY: External Genitalia: intact and normal in appearance Cervix: Thick, posterior Dilatation: 0 cm Effacement: 0% Station: -3 Presentation: [-] Membranes: Intact Uterine Contractions: None, irritable cramping FHT's: Category: I Baseline: 130 Reactive: accels present, up to 150 Variability: Moderate Decels: None EXTREMITIES: Moderate edema of BLE, both extremities appear the same size NEUROLOGICAL: Awake and alert. Motor and sensory grossly within normal limits. Five out of 5 muscle strength in all muscle groups. Normal speech. Data Data Orders Orders Vital Signs (Adult) .ON ADMISSION (01/01/18 13:44) ^ Labor Status (01/01/18 13:44) ^ Non Stress Test (01/01/18 13:44) ^ Hydration (01/01/18 13:44) MDM Medical Record Reviewed: Yes Interpretation(s) 22 y/o at 35/2 weeks gestation with PMH of cholestasis presents with cramping. Plan 1. Intrauterine -Poor care, patient has missed 4 visits -Reports decreased movements, heart tones reassuring -Maternal BP wnl -However check BPP -Check UA 2. Cholestasis of -Bile acids ordered on 12/19 were within normal limits at 12 -Repeat bile acids today and CMP -Increase ursodiol to 600 mg p.o. 3 times daily -Continue calamine lotion and Benadryl -Return to the ED on January 10, [address] Medina and possible MFM consult Narrative course: BPP 8/8 with good growth. UA indicated UTI with large leukocyte esterase and 11 WBC. Macrobid prescribed. Discharge instructions given. Diagnosis Diagnosis: Primary Impression: Uterine cramping Additional Impressions: Cholestasis during in third trimester Urinary tract infection Disposition: 01 DISCHARGE HOME Condition: Stable Scripts Nitrofurantoin Macrocrystal (Macrodantin) 50 Mg Cap 50 MG PO DAILY for Infection, #30 CAP 1 Refill Pls start after completing macrobid x 7 days. Prov: Meghan Rock MD 01/01/18 Nitrofurantoin Monohydrate Macrocrystals (Macrobid) 100 Mg Cap 100 MG PO BID for Infection, #14 CAP 0 Refills Prov: Meghan Rock MD 01/01/18 Ursodiol (Ursodiol) 300 Mg Cap 600 MG PO TID for Gallstones for 14 Days, #90 CAP 3 Refills Prov: Meghan Rock MD 01/01/18 Patient Instructions: Abdominal Pain in (ED), Movement (ED), Urinary Tract Infection in (ED), Early Labor Signs (ED) Meghan Rock MD Jan 01, 2018 13:57
[2018-01-01 14:01] VITALS: BP 118/54; PULSE 92
[2018-01-01] MEDS ORDERED: URSO300C2 PO (14:25)
[2018-01-01] MEDS ORDERED: ACETAMINOPHEN 325 MG TAB PO ONE (14:30)
[2018-01-01 14:35] LABS: AMORPHOUS SEDIMENT, URINE RARE; BACTERIA, URINE OCC /hpf; BILIRUBIN, URINE NEG (NEG); BLOOD, URINE NEG (NEG); GLUCOSE,URINE NEG (NEG); KETONE, URINE NEG (NEG); MUCUS URINE FEW /lpf (OCC); NITRITE,URINE NEG (NEG); SQUAMOUS EPITHELIAL CELL URINE 16 /hpf (0-5); URINE COLOR YELLOW (YELLW/STRAW); URINE LEUKOCYTE ESTERASE LARGE (NEG)
[2018-01-01] MEDS ORDERED: MACR100C2 PO (14:58)
[2018-01-01] MEDS ORDERED: NITR50CA27 PO (15:13)
[2018-01-01 16:00] LABS: ALBUMIN 2.4 GM/DL (3.4-5.0); AST (GOT) 9 U/L (15-37); BICARBONATE 26.2 MEQ/L (21.0-32.0); BLOOD UREA NITROGEN 3 MG/DL (7-18); CALCIUM 8.7 MG/DL (8.5-10.1); CHLORIDE 106 MEQ/L (98-107); CREATININE 0.44 MG/DL (0.50-1.00); GLOMERULAR FILTRATION RATE 181 ML/MIN (>89); GLUCOSE,RANDOM 75 MG/DL (74-106); SODIUM (NA) 140 MEQ/L (136-145)
[2018-01-01 16:03] LABS: ALKALINE PHOSPHATASE 291 U/L (45-117); ALT (GPT) 8 U/L (10-53); TOTAL BILIRUBIN ADULT 0.2 MG/DL (0.2-1.0); TOTAL PROTEIN 6.1 GM/DL (6.4-8.2)
== END 2018-01-01 15:29 | disposition home or self-care (01) ==
LOC: HOBED 13:03
DX: N94.89 Other specified conditions associated with female genital organs and menstrual cycle (principal); O26.613 Liver and biliary tract disorders in pregnancy, third trimester; K83.1 Obstruction of bile duct; O23.43 Unspecified infection of urinary tract in pregnancy, third trimester; O36.8130 Decreased fetal movements, third trimester, not applicable or unspecified; Z3A.35 35 weeks gestation of pregnancy; Z87.891 Personal history of nicotine dependence
CPT/HCPCS: 36415; 59025; 76816; 76819; 80053; 81001; 82239; 87086

== ENCOUNTER 2018-01-09 19:42 | Emergency (ER) | payer OTHER ==
[~2018-01-09 19:42] MED LIST changes: +MACR100C2 PO; +NITR50CA27 PO
[2018-01-09 19:44] VITALS: BP 159/71; PULSE 105; RESP 22; TEMP 98.3; O2SAT 98
--- NOTE | 2018-01-09 21:41 | RADRPT ---
EXAM DATE/TIME: 01/09/2018 20:16 [facility] COMPARISON: No previous studies available for comparison. INDICATIONS : Dog bite, left hand pain. MEDICAL HISTORY : None. SURGICAL HISTORY : None. ENCOUNTER: Initial ACUITY: 1 day PAIN SCORE: 5/10 LOCATION: Left hand FINDINGS: Three view examination of the left hand demonstrates no soft tissue swelling, dislocation, or fractur e. The carpal bones appear intact. The interphalangeal and metacarpophalangeal joints are intact. Bony mineralization is normal. CONCLUSION: 1. No acute bony abnormality. No radiopaque foreign body. Kwesi Bueno MD on January 09, 2018 at 21:37 Board Certified Radiologist. This report was verified electronically.
[2018-01-09] MEDS ORDERED: DIPHTH/TETANUS/ACEL PERTUSSIS (BOOSTER) 0.5 ML VIAL/PFS IM ONE (22:15)
--- NOTE | 2018-01-09 22:33 | PD ---
HPI Chief Complaint: Bite or Sting Time Seen by Provider: 22:03 Travel History International Travel<30 days: No Contact w/Intl Traveler<30days: No Traveled to known affect area: No History of Present Illness HPI 22-year-old 36 weeks gravid female presents emergency department complaining of left hand pain after being bit by a dog about 7 PM this evening. Says that she was trying to determine where the dog is from by looking at his collar when he bit her resulting in this injury today. States that she does have full range of motion of her hand, is mild to moderate aching pain, swelling noted. Denies numbness or tingling. Says that the dog was not foaming at the mouth, was not behaving erratically. She does not know whose dog this is or if vaccinations are up-to-date. Denies fever, chills, nausea, vomiting or diarrhea. She does not know when she last had a tetanus vaccination. Says she is due to come to the hospital tomorrow for possible induction and follow-up with her veneer sawyer , Dr. Medina. [facility] Past Medical History Asthma: Yes (childhood) Diminished Hearing: No Reproductive: Yes Immunizations Current: Yes ?: : 2 Miscarriage: 1 Dilation and Curettage (D&C): Yes (09/2016) Past Surgical History Gynecologic Surgery: Yes (D AND C) Social History Alcohol Use: No Tobacco Use: No (Former smoker, quit when she found that she was ) Substance Use: No (pt denies ) Allergies-Medications (Allergen,Severity, Reaction): Coded Allergies: almond (Verified Allergy, Severe, anaphalactic, 11/19/17) Reported Meds & Prescriptions Reported Meds & Active Scripts Active Augmentin (Amoxicillin-Clavulanate) 875-125 Mg Tab 1 Tab PO BID Macrodantin (Nitrofurantoin Macrocrystal) 50 Mg Cap 50 Mg PO DAILY Pls start after completing macrobid x 7 days. Macrobid (Nitrofurantoin Monoh/Nitrofur Macro) 100 Mg Cap 100 Mg PO BID Ursodiol 300 Mg Cap 600 Mg PO TID 14 Days Terazol 7 Vaginal Cream (Terconazole Vaginal Cream) 0.4 % Cream 1 Appl VAGINAL HS 7 Days 1 applicatorful intravaginally x 7 nights Hydroxyzine HCl 50 Mg Tab 50 Mg PO TID Citranatal [place] ( W/O Vit A W/ Fe Fumar) 27-1-260 Mg Cap 1 Cap PO DAILY Review of Systems Except as stated in HPI: all other systems reviewed are Neg Physical Exam Narrative GENERAL: Well-developed, well-nourished in no apparent distress SKIN: Focused skin assessment warm/dry. Left hand-2 1 cm lacerations to dorsal and palmar aspect of left thumb between first and second metacarpals, mild edema , no erythema, bleeding controlled HEAD: Atraumatic. Normocephalic. EYES: Pupils equal and round. No scleral icterus. No injection or drainage. ENT: No nasal bleeding or discharge. Mucous membranes pink and moist. NECK: Trachea midline. No JVD. CARDIOVASCULAR: Regular rate and rhythm. No murmur appreciated. RESPIRATORY: No accessory muscle use. Clear to auscultation. Breath sounds equal bilaterally. GASTROINTESTINAL: Abdomen soft, non-tender, nondistended. Hepatic and splenic margins not palpable. Gravid abdomen MUSCULOSKELETAL: No obvious deformities. No clubbing. No cyanosis. Mild to moderate edema present lower extremities NEUROLOGICAL: Awake and alert. No obvious cranial nerve deficits. Motor grossly within normal limits. Normal speech. PSYCHIATRIC: Appropriate mood and affect; insight and judgment normal. Data Data Last Documented VS Vital Signs Date Time Temp Pulse Resp B/P (MAP) Pulse Ox O2 Delivery O2 Flow Rate FiO2 01/09/18 19:44 98.3 105 22 159/71 (100) 98 Orders Orders Hand, Complete ([id number]) (01/09/18 ) [id number] (Booster) Inj (Boostrix (01/09/18 22:15) Amoxicil-Clavulanate (Augmentin) (01/09/18 22:45) Ed Discharge Order (01/09/18 22:36) MDM Medical Decision Making Medical Screen Exam Complete: Yes Emergency Medical Condition: Yes Differential Diagnosis Left hand laceration, abrasion, contusion, dog bite Narrative Course 22y female presents emergency department for evaluation of a wound to the left hand sustained after a dog bite that occurred today. Physical exam findings demonstrate a well-developed, well-nourished 22-year-old female, 36 weeks gravid with a wound to the left hand. Left hand with 2 1 cm lacerations to the dorsal and palmar aspect of thenar region. Bleeding controlled. Neurovascularly intact. Bilateral lower extremities with mild to moderate edema. Patient states that she was evaluated by her veneer sawyer approximately 1 week ago who did not appear concerned, according to patient. Last Impressions Hand X-Ray 01/09/18 0000 Signed Impressions: Service Date/Time: Tuesday, January 09, 2018 20:16 - CONCLUSION: 1. No acute bony abnormality. No radiopaque foreign body. Kwesi Bueno MD During the process evaluation, patient states that she had to leave as her ride was coming to pick her up and she would not have any other means to get home. Wound care not performed today. Advised patient on how to care for her hand wound. Because patient's transportation home is unwilling to wait, I am unable to place a call to the OB hospitalist for their recommendations regarding her visit today. Tetanus and Augmentin administered to the emergency department. Patient will be discharged with a prescription for Augmentin. Patient states that she is due to follow-up with her veneer sawyer tomorrow morning for further evaluation of her status. Says that she will wash her hand when she gets home. Says that she will get treatment from her veneer sawyer regarding this wound. Diagnosis Primary Impression: Dog bite Qualified Codes: W54.0XXA - Bitten by dog, initial encounter Referrals: Delivery Analyst Primary Care Physician Additional Instructions: Take all medications as prescribed. Follow-up with your veneer sawyer tomorrow as discussed. You may wash her wound with soap and water. Dry thoroughly. Cover the wound. Follow up with your primary care physician within 2-3 days. If your symptoms persist or worsen, return to the emergency department. Keep area clean and dry. You may bathe as normal. You may use [id number] triple antibiotic ointments for your injury daily. Change dressings daily. If bleeding starts, applied pressure and elevate the area. If he developed increased redness, swelling, or pain return to the emergency department. Scripts Amoxicillin-Clavulanate (Augmentin) 875-125 Mg Tab 1 TAB PO BID for Infection, #14 TAB 0 Refills Prov: Adam Mcdermott MD 01/09/18 Disposition: 01 DISCHARGE HOME Condition: Stable Renée Reeves Jan 09, 2018 22:33
[2018-01-09] MEDS ORDERED: AUGM875T3 PO (22:35)
[2018-01-09] MEDS ORDERED: AMOXICILLIN/CLAVULANATE K 875 MG TAB PO ONE (22:45)
== END 2018-01-09 22:50 | disposition home or self-care (01) ==
LOC: NED 19:42 → NEPA 22:50
DX: S61.452A Open bite of left hand, initial encounter (principal); W54.0XXA Bitten by dog, initial encounter; Z23 Encounter for immunization
CPT/HCPCS: 73130; 90471; 90715

== ENCOUNTER 2018-01-10 16:35 | Emergency (ER) | payer OTHER ==
[~2018-01-10] VITALS: Ht 167.6 cm; Wt 99.8 kg
[~2018-01-10 16:35] MED LIST changes: +AUGM875T3 PO
[2018-01-10 17:57] VITALS: BP 138/75; PULSE 117
[2018-01-10 18:00] VITALS: RESP 17
[2018-01-10 19:08] LABS: ALBUMIN 2.1 GM/DL (3.4-5.0); AST (GOT) 10 U/L (15-37); BICARBONATE 23.1 MEQ/L (21.0-32.0); BLOOD UREA NITROGEN 4 MG/DL (7-18); CALCIUM 8.5 MG/DL (8.5-10.1); CHLORIDE 109 MEQ/L (98-107); CREATININE 0.47 MG/DL (0.50-1.00); GLOMERULAR FILTRATION RATE 167 ML/MIN (>89); GLUCOSE,RANDOM 121 MG/DL (74-106); SODIUM (NA) 143 MEQ/L (136-145)
[2018-01-10 19:09] LABS: ALT (GPT) 8 U/L (10-53)
[2018-01-10 19:11] LABS: ALKALINE PHOSPHATASE 398 U/L (45-117); TOTAL BILIRUBIN ADULT 0.2 MG/DL (0.2-1.0); TOTAL PROTEIN 5.9 GM/DL (6.4-8.2)
--- NOTE | 2018-01-10 19:18 | PD ---
HPI Chief Complaint Itching which has improved somewhat Date Seen: Jan 10, 2018 Time Seen: 18:25 Travel History International Travel<30 Days: No Contact w/Intl Traveler<30Days: No Known Affected Area: No History of Present Illness HPI Patient is 22-year-old white female at 36 weeks 4 days who has cholestasis of is been treated for this for the last month. Is on ursodiol initially was 300 3 times daily but that will be bumped to 600 3 times daily she will take 2 tablets a day 3 times daily. She was supposed to do that last time I saw her double up on the medicine but she never did she was confused about what to do and so just to the regular dose, however she is feeling better she is having a little bit less itching than she was and is tolerating it better it is okay in the day but is still bad at night and in her legs and feet. Baby is moving heart tracing is reactive and there are no contractions Weeks Gestation: 36 Para: 0 : 2 History Past Medical History Narrative Medical Diagnosed with cholestasis of at approximately 30 weeks Obstetric History Obstetric History 1 early loss Social History Alcohol Use: No Tobacco Use: No Substance Abuse: No Allergies-Medications (Allergen,Severity, Reaction): Coded Allergies: almond (Verified Allergy, Severe, anaphalactic, 11/19/17) Home Meds Active Scripts Amoxicillin-Clavulanate (Augmentin) 875-125 Mg Tab, 1 TAB PO BID for Infection, #14 TAB 0 Refills Prov:Adam Mcdermott MD 01/09/18 Nitrofurantoin Macrocrystal (Macrodantin) 50 Mg Cap, 50 MG PO DAILY for Infection, #30 CAP 1 Refill Pls start after completing macrobid x 7 days. Prov:Meghan Rock MD 01/01/18 Nitrofurantoin Monohydrate Macrocrystals (Macrobid) 100 Mg Cap, 100 MG PO BID for Infection, #14 CAP 0 Refills Prov:Meghan Rock MD 01/01/18 Ursodiol (Ursodiol) 300 Mg Cap, 600 MG PO TID for Gallstones for 14 Days, #90 CAP 3 Refills Prov:Meghan Rock MD 01/01/18 Terconazole Vaginal Cream (Terazol 7 Vaginal Cream) 0.4 % Cream, 1 APPL VAGINAL HS for Fungal Infection for 7 Days, #45 GM 0 Refills 1 applicatorful intravaginally x 7 nights Prov:Paul Medina II, MD 12/19/17 Hydroxyzine HCl (Hydroxyzine HCl) 50 Mg Tab, 50 MG PO TID for Itching, #30 TAB 3 Refills Prov:Paul Medina II, MD 12/19/17 W/O Vit A W/ Fe Fumar (Citranatal [place]) 27-1-260 Mg Cap, 1 CAP PO DAILY for Nutritional Supplement, #30 CAP 3 Refills Prov:Mery Todd CNM [facility] 08/23/17 Review of Systems General / Constitutional: No: Fever, Weight Gain, Chills, Other Eyes: No: Diploplia, Blurred Vision, Visual changes, Pain, Photophobia HENT: No: Headaches, Vertigo, Lightheadedness Cardiovascular: No: Irregular Rhythm, Chest Pain or Discomfort, Palpitations, Tachycardia, Syncope, Varicosities, Edema, Cyanosis Respiratory: No: Cough, Short of Breath, Other Gastrointestinal: No: Nausea, Vomiting, Diarrhea Genitourinary: No: Decreased Urinary Output, Oliguria Musculoskeletal: No: Limited ROM, Weakness, Cramping, Edema, Pain Skin: No Rash, Itching, No Dryness, No Lumps, No Change in Pigmentation, No Change in Nails, No Alopecia, No Lesions Neurologic: No: Weakness, Dizziness, Syncope, Focal Abnormalities, Coordination Problem, Headache, Slurred Speech, Seizures Psychiatric: No: Depression, Suicidal Ideations, Homicidal Ideation Endocrine: No: Heat Intolerance, Cold Intolerance, Polydipsia, Polyuria, Other Physical Exam Vital Signs Date Time Temp Pulse Resp B/P (MAP) Pulse Ox O2 Delivery O2 Flow Rate FiO2 01/10/18 18:00 17 01/10/18 17:57 117 138/75 (96) Narrative GENERAL: Well-nourished, well-developed patient. SKIN: Warm and dry. HEAD: Normocephalic and atraumatic. EYES: No scleral icterus. No injection or drainage. ENT: No nasal drainage noted. Mucous membranes pink. Airway patent. NECK: Supple, trachea midline. No JVD. CARDIOVASCULAR: Regular rate and rhythm without murmurs, gallops, or rubs. RESPIRATORY: Breath sounds equal bilaterally. No accessory muscle use. BREASTS: Bilateral exam showed no masses , no retractions, no nipple discharge. ABDOMEN/GI: Abdomen soft, non-tender, bowel sounds present, no rebound, no guarding Gravid to [36-] weeks size Fundal Height: [-36] GENITOURINARY: External Genitalia: intact and normal in appearance BUS glands: [-] Cervix: [-post] Dilatation: [-0] Effacement: [0-] Station: [-3] Membranes: [intact ] Uterine Contractions: [reg-] FHT's: Category: [1-] Baseline: [-133] Reactive: [-R] Variability: [mod-] Decels: [none-] EXTREMITIES: No cyanosis or edema. BACK: Nontender without obvious deformity. No CVA tenderness. NEUROLOGICAL: Awake and alert. Motor and sensory grossly within normal limits. Five out of 5 muscle strength in all muscle groups. Normal speech. Data Data Orders Orders Vital Signs (Adult) .ON ADMISSION (01/10/18 18:15) ^ Labor Status (01/10/18 18:15) ^ Non Stress Test (01/10/18 18:15) ^ Hydration (01/10/18 18:15) Comprehensive Metabolic Panel (01/10/18 18:15) Bile Acids Total (01/10/18 18:22) Labs Laboratory Tests Test 01/10/18 18:37 Blood Urea Nitrogen 4 Creatinine 0.47 Random Glucose 121 Total Protein 5.9 Albumin 2.1 Calcium Level 8.5 Alkaline Phosphatase 398 Aspartate Amino Transf (AST/SGOT) 10 Alanine Aminotransferase (ALT/SGPT) 8 Total Bilirubin 0.2 Sodium Level 143 Potassium Level 3.7 Chloride Level 109 Carbon Dioxide Level 23.1 Anion Gap 11 Estimat Glomerular Filtration Rate 167 MDM Interpretation(s) Patient is 22-year-old white female at 36 weeks 4 days [facility] and presents with follow-up for cholestasis of . The patient said itching that there was a severe at the onset of therapy with ursodiol 300 mg 3 times daily, last time she was seen a week ago we wanted to double that to 600 3 times daily but patient never went up on the dose but she will start doing that after today's visit. However she is improved and less itching now than over the last few weeks Plan Her liver functions are normal today bowel sounds are redrawn. The 2 times withdrawn bile salts and bile acids there were within normal limits last time it was 16 with levels greater than 35-40 indicating cholestasis in the lab, also her NST is reactive. In the event cholestasis of typically early delivery is indicated at the 36 --37 week range. We will have the patient come back in 1 week should be 37-1/2 weeks and at that time she was instructed to come in the morning so we can talk to maternal medicine about her and review her lab again and then discuss whether she needs to be induced or not at that point Diagnosis Diagnosis: Primary Impression: Cholestasis during in third trimester Disposition: 01 DISCHARGE HOME Condition: Stable Paul Medina II, MD Jan 10, 2018 19:18
== END 2018-01-10 19:30 | disposition home or self-care (01) ==
LOC: HOBED 16:35
DX: O26.613 Liver and biliary tract disorders in pregnancy, third trimester (principal); K83.1 Obstruction of bile duct; L29.9 Pruritus, unspecified; Z3A.36 36 weeks gestation of pregnancy
CPT/HCPCS: 36415; 59025; 80053